=== PATIENT | female | born 1950 | race Hispanic/Latino ===

== ENCOUNTER → 2020-11-27 | Day surgery (SDC) | payer MEDICARE ==
[2020-11-25 15:06] LABS: BASOPHILS # (AUTO) 0.1 (0.0-0.1); BASOPHILS % 0.8 % (0.0-1.0); EOSINOPHILS # (AUTO) 0.3 (0.0-0.4); EOSINOPHILS % 4.2 % (0.0-6.0); HEMOGLOBIN 14.1 g/dL (12.0-16.0); LYMPHOCYTES # (AUTO) 1.5 (1.0-3.2); LYMPHOCYTES % 19.4 % (18.0-39.1); MEAN CORPUSCULAR HEMOGLOBIN 29.5 pg (28-32); MEAN CORPUSCULAR HGB CONC 32.8 g/dL (31-35); MONOCYTES # (AUTO) 0.6 (0.2-0.8); MONOCYTES % 7.9 % (4.4-11.3); NEUTROPHILS # (AUTO) 5.1 (2.1-6.9); PLATELET COUNT 180 x10e3/uL (140-360); RED BLOOD COUNT 4.78 x10e6/uL (3.6-5.1)
[~2020-11-27] MED LIST: AMLODIPINE BESYL5 MG PO; FENTANYL CITRATE/PF 100MCG/2 ML INJ ONE; HYOSCYAMINE 0.125 MG TAB ONE; HYOSCYAMINE SULFATE 0.5 MG/ML INJ ONE; LABETALOL HCL100 MG PO; LIDOCAINE HCL 2% LOCAL INJ 5 ML SDV VIAL INJ ONE; MIDAZOLAM HCL 2 MG/2 ML VIAL ONE; MYFORTIC360 MG PO; PROGRAF1 MG PO; PROPOFOL IV EMULSION 10 MG/ML 20 ML VIAL ONE
[2020-11-27 13:30] VITALS: BP 137/72
== END | disposition home or self-care (01) ==
LOC: OR 09:37
PROVIDERS: ATTEND Internal Medicine Gastroenterology
DX: K20.90 Esophagitis, unspecified without bleeding (principal); K22.2 Esophageal obstruction; K29.70 Gastritis, unspecified, without bleeding; K44.9 Diaphragmatic hernia without obstruction or gangrene; K31.89 Other diseases of stomach and duodenum; K57.30 Diverticulosis of large intestine without perforation or abscess without bleeding; K64.8 Other hemorrhoids; I12.0 Hypertensive chronic kidney disease with stage 5 chronic kidney disease or end stage renal disease; N18.6 End stage renal disease; Z94.0 Kidney transplant status; R19.7 Diarrhea, unspecified; Z68.30 Body mass index [BMI] 30.0-30.9, adult; Z88.3 Allergy status to other anti-infective agents; Z88.0 Allergy status to penicillin; Z01.810 Encounter for preprocedural cardiovascular examination; Z01.812 Encounter for preprocedural laboratory examination; Z20.822 Contact with and (suspected) exposure to COVID-19
CPT/HCPCS: 36415; 43239; 43450; 45378; 85025; 88305; 88312; 93005; J1980; J2001; J2250; J2704; J3010; U0002